=== PATIENT | male | born 1945 | race Caucasian/White ===

== ENCOUNTER 2016-09-04 02:07 | Emergency (ER) | payer MEDICARE, OTHER ==
[2016-09-04 03:33] LABS: BASOPHIL 0.3 % (0-2); EOSINOPHIL 3.6 % (0-7); HCT 39.5 % (42.0-52.0); HGB 12.9 g/dl (13.2-18.0); LYMPHOCYTE 21.4 % (15-48); MCH 28.1 pg (25.0-31.0); MCHC 32.7 g/dL (32.0-36.0); MCV 86.1 fL (78.0-100.0); MONOCYTE 8.4 % (0-12); MPV 9.9 fL (6.0-9.5); NEUTROPHIL 66.3 % (41-80); PLT 331 K/uL (150-400); RBC 4.59 M/uL (4.70-6.00); RDW 15.2 % (11.5-14.0); WBC 6.9 K/uL (4.0-10.5)
[2016-09-04 04:10] LABS: CREATININE 0.9 mg/dL (0.7-1.2); MAGNESIUM 1.78 mg/dL (1.40-2.10); POTASSIUM 4.3 mmol/L (3.5-5.1)
== END 2016-09-04 04:45 | disposition home or self-care (01) ==
LOC: FER 02:07
PROVIDERS: Emergency Medicine Emergency Medical Services
DX: R25.2 Cramp and spasm (principal); I10 Essential (primary) hypertension; J44.9 Chronic obstructive pulmonary disease, unspecified; Z88.6 Allergy status to analgesic agent; Z98.890 Other specified postprocedural states; Z79.899 Other long term (current) drug therapy
CPT/HCPCS: 36415; 80048; 83735; 85025; J1100; J2800